=== PATIENT | female | born 1955 ===

== ENCOUNTER 2020-07-20 12:58 | Outpatient (CLI) | payer MEDICARE, MEDICAID ==
--- NOTE | 2020-07-20 18:29 | CT ---
CT OF THE CHEST WITHOUT CONTRAST: Date: 07/20/2020 COMPARISON: None. HISTORY: Chronic hiccups and gastroesophageal reflux disease. Constipation. TECHNIQUE: Multiple contiguous axial images were obtained in a CT of the chest without contrast. Sagittal and co vivien reformats were performed. FINDINGS: Atelectasis is seen in both lung bases. No suspicious pulmonary masses or infiltrates are seen. No pn eumothorax or pleural effusions are seen. The heart is normal in size. There appears to be a septal occlusive device in the intra-atrial septum . Calcifications are seen in the coronary arteries and aorta. No hilar or mediastinal lymphadenopathy are appreciated on this limited noncontrast examination. Degenerative changes are seen in the spine. The chest wall soft tissues and visualized subdiaphragmat ic structures are unremarkable. IMPRESSION: No evidence of acute intrathoracic abnormality. POS: EAA
== END 2020-07-20 12:59 | disposition home or self-care (01) ==
LOC: BICCT 12:58
PROVIDERS: ATTEND Physician Assistant Medical
DX: K21.9 Gastro-esophageal reflux disease without esophagitis (principal); R06.6 Hiccough; K59.00 Constipation, unspecified
CPT/HCPCS: 71250